=== PATIENT | female | born 2000 | race Caucasian/White ===

== ENCOUNTER 2023-04-06 16:03 | Outpatient (CLI) | payer OTHER, SELFPAY ==
--- NOTE | 2023-04-06 16:00 | CRLHL7_ITS ---
For Patients: As a result of the Cures Act, medical imaging exams and procedure reports are released immediately into your electronic medical record. You may view this report before your referring provider. If you have questions, please contact your health care provider. INDICATION: First trimester scan, establish dates. COMPARISON: None. TECHNIQUE: Real-time clay-scale imaging of the pelvis was performed. FINDINGS: Sonographic imaging demonstrates a single living intrauterine gestation. The embryo demonstrates a regular cardiac rate measuring 167 beats per minute. The embryo`s crown-rump length measurement of 2.6 cm corresponds to a gestational age of 9 weeks 2 days with a sonographic due date of 11.07.23. There is a normal-appearing yolk sac. There are no gross abnormalities noted within the embryo at this early state of development. The gestational sac has a normal appearance. There is no evidence of a perigestational hemorrhage. The amount of fluid within the sac appears appropriate for gestational age. The cervix is closed. The myometrium appears normal. The ovaries are of normal size. Corpus luteal cyst left ovary. There are no suspicious fluid collections noted in the cul-de-sac. IMPRESSION: Normal first trimester OB ultrasound exam. Gestational age calculated at 9 weeks 2 days with a sonographic due date of 11.07.23. Dictated by Anatoliy Cardenas MD @ 04/07/2023 12:34:08 PM (Electronically Signed)
== END 2023-04-06 16:04 | disposition home or self-care (01) ==
LOC: US 16:04
PROVIDERS: Visit Provider Physician Assistant
DX: Z34.91 Encounter for supervision of normal pregnancy, unspecified, first trimester (principal); Z3A.09 9 weeks gestation of pregnancy
CPT/HCPCS: 76817

== ENCOUNTER 2023-04-06 17:01 | Outpatient (CLI) | payer OTHER, SELFPAY ==
[2023-04-06 22:01] LABS: Chlamydia DNA Amplified* NOT DETECTED (No Detected); GC DNA Amplified* NOT DETECTED (No Detected)
== END 2023-04-06 17:02 | disposition home or self-care (01) ==
PROVIDERS: Visit Provider Physician Assistant
DX: Z34.91 Encounter for supervision of normal pregnancy, unspecified, first trimester (principal); Z3A.08 8 weeks gestation of pregnancy
CPT/HCPCS: 86592; 86703; 86762; 86787; 86803; 86850; 86900; 86901; 87086; 87340; 87491; 87591

== ENCOUNTER 2023-05-04 13:17 | Outpatient (CLI) | payer OTHER, SELFPAY ==
--- NOTE | 2023-05-04 13:00 | CRLHL7_ITS ---
For Patients: As a result of the Century Cures Act, medical imaging exams and procedure reports are released immediately into your electronic medical record. You may view this report before your referring provider. If you have questions, please contact your health care provider. CLINICAL HISTORY: First trimester screening. TECHNIQUE: Real time clay scale imaging of the fetus was performed using a transabdominal approach. FINDINGS: Sonographic imaging demonstrates a single living intrauterine gestation. The fetus demonstrates a regular cardiac rate measuring 150 beats per minute. The crown rump length measurement of 8.2 cm corresponds to a gestation of 14 weeks 1 day which is concordant with the earlier dating ultrasound. A nuchal translucency measurement of 1.8 mm was obtained for screening purposes. IMPRESSION: Nuchal translucency measurement obtained for first trimester screen. Dictated by Anatoliy Cardenas MD @ 05/05/2023 1:02:14 PM (Electronically Signed)
== END 2023-05-04 13:18 | disposition home or self-care (01) ==
PROVIDERS: Visit Provider Physician Assistant
DX: Z34.91 Encounter for supervision of normal pregnancy, unspecified, first trimester (principal); Z3A.14 14 weeks gestation of pregnancy
CPT/HCPCS: 36415; 76801; 76813; 84163; 84702

== ENCOUNTER 2023-06-25 11:04 | Outpatient (CLI) | payer MEDICAID, SELFPAY ==
--- NOTE | 2023-06-25 11:15 | CRLHL7_ITS ---
For Patients: As a result of the Century Cures Act, medical imaging exams and procedure reports are released immediately into your electronic medical record. You may view this report before your referring provider. If you have questions, please contact your health care provider. INDICATION: Evaluate anatomy. COMPARISON: 04/06/2023, 05/04/2023 TECHNIQUE: Real time clay scale imaging of the fetus was performed as well as color Doppler analysis of the umbilical vessels. FINDINGS: Sonographic imaging demonstrates a single living intrauterine gestation. Fetus demonstrates a regular cardiac rate of 154 beats per minute. Fetus has a vertex position. The placenta lies anteriorly without evidence of placenta previa. The edge of the placenta is located 7.2 cm from the internal cervical os. Amniotic fluid volume appears normal. Single deepest vertical pocket: 4.3 cm. The cervix is closed and measures 4.2 cm in length. The composite ultrasound gestational age is calculated at 21 weeks 3 days with an estimated sonographic due date of 11/02/2023. The estimated weight is 435 grams which lies at the 88th %. The following biometric measurements were obtained: Biparietal diameter: 5.0 cm/21 weeks 2 days 71st% Head circumference: 18.4 cm/20 weeks 6 days 44th% Abdominal circumference: 17.3 cm/22 weeks 2 days 87th% Femur length: 3.5 cm/21 weeks 0 days 52nd% The HC/AC ratio measures: 1.07 range (1.06-1.24) On anatomic survey, there is a normal appearance of the cerebral ventricles, cavum septi pellucidi, cisterna magna and cerebellum. The nose, lips, and facial profile appear normal. The cervical, thoracic and lumbar spine are well visualized and appear normal. There is a normal four-chamber heart view and the left and right ventricular outflow tracts appear normal. The diaphragm and stomach appear normal. The kidneys and bladder also appear normal. There is a normal three-vessel cord and cord insertion site. The four extremities appear normal. IMPRESSION: Normal OB ultrasound exam with concordance of clinical and sonographic dating. No intrinsic abnormalities noted on anatomic survey. Dictated by Anatoliy Cardenas MD @ 06/25/2023 12:09:45 PM (Electronically Signed)
== END 2023-06-25 11:05 | disposition home or self-care (01) ==
LOC: US 11:05
PROVIDERS: Visit Provider Physician Assistant
DX: Z34.92 Encounter for supervision of normal pregnancy, unspecified, second trimester (principal); Z3A.21 21 weeks gestation of pregnancy
CPT/HCPCS: 76805

== ENCOUNTER 2023-08-26 09:45 | Outpatient (CLI) | payer BC, SELFPAY | END 2023-08-26 09:46 | disposition home or self-care (01) | LOC: NFLDREF 09-01 18:27 | PROVIDERS: Visit Provider Obstetrics & Gynecology | DX: Z34.92 Encounter for supervision of normal pregnancy, unspecified, second trimester (principal) | CPT/HCPCS: 86592; 86850 ==

== ENCOUNTER 2023-09-23 14:29 | Outpatient (CLI) | payer OTHER, BC, SELFPAY ==
--- NOTE | 2023-09-29 12:27 | ONC.NURNOTE ---
Dx: Iron Deficiency Anemia
== END 2023-09-23 14:30 | disposition home or self-care (01) ==
LOC: NFLDREF 09-24 01:05
PROVIDERS: Visit Provider Obstetrics & Gynecology
DX: Z34.83 Encounter for supervision of other normal pregnancy, third trimester (principal)
CPT/HCPCS: 82728

== ENCOUNTER 2023-10-08 11:00 | Outpatient (REF) | payer OTHER, BC, SELFPAY | END 2023-10-08 11:01 | disposition home or self-care (01) | LOC: NFLDREF 11:00 | PROVIDERS: Visit Provider Obstetrics & Gynecology | DX: Z34.93 Encounter for supervision of normal pregnancy, unspecified, third trimester (principal); Z3A.35 35 weeks gestation of pregnancy | CPT/HCPCS: 87081; 87653 ==

== ENCOUNTER 2023-10-15 09:30 | Outpatient (RCR) | payer OTHER, BC, SELFPAY ==
[2023-10-14 11:38] VITALS: BP 127/77; PULSE 102; RESP 16; TEMP 36.5; O2SAT 96
--- NOTE | 2023-10-14 12:11 | ONC.NURNOTE ---
Patient here for infed. Pharmacy does not have the drug. Patient rescheduled for tomorrow at 930. Moved OB appointment to 1:15 to be safe. Service recovery gift card given to patient. Patient very understanding and all questions answered.
--- NOTE | 2023-10-14 13:31 | URNOTE ---
Request Received for authorization for Iron Dextran (Infed) ([id number]). Prior Authorization is not required per [facility] Rep. Pineda (Ref#[id number]), or SHAAN antonio (Ref# [id number]) date range: 09/28/2023 to 12/21/2023.
[2023-10-15 09:28] VITALS: BP 132/80; PULSE 94; RESP 16; TEMP 36; O2SAT 97
[2023-10-15] MEDS: IRON DEXTRAN COMPLEX 25 MG in 0.9 % SODIUM CHLORIDE 100 ml 100 ML 402 MG IVPB (09:45)
[2023-10-15 10:05] VITALS: BP 123/71; PULSE 86; RESP 16; TEMP 36.7; O2SAT 98
[2023-10-15 10:32] VITALS: BP 117/73; PULSE 94; RESP 16; TEMP 36.8; O2SAT 96
[2023-10-15] MEDS: IRON DEXTRAN COMPLEX 975 MG in 0.9 % SODIUM CHLORIDE 250 ml 250 ML 269.5 MG IVPB (10:57)
[2023-10-15 12:05] VITALS: BP 112/65; PULSE 85; RESP 16; TEMP 36.7; O2SAT 96
[2023-10-15 12:26] VITALS: BP 128/71; PULSE 79; RESP 16; TEMP 36.6; O2SAT 97
== END 2024-04-11 23:59 | disposition home or self-care (01) ==
LOC: CCIC 09:30
PROVIDERS: PCP Obstetrics & Gynecology; Referring Provider Obstetrics & Gynecology; Visit Provider Clinical Nurse Specialist
DX: D50.9 Iron deficiency anemia, unspecified (principal)
CPT/HCPCS: 96365; 96376; J1750; J7050

== ENCOUNTER 2023-11-09 16:31 | Inpatient (IN) | payer OTHER, BC, SELFPAY ==
[2023-11-09 16:48] VITALS: BP 131/75; PULSE 102; PULSE 109; RESP 16; TEMP 36.9; O2SAT 95
[2023-11-09 16:55] VITALS: BMI 28.9
--- NOTE | 2023-11-09 17:44 | P.LDBA_ITS ---
Subjective History of Present Illness Narrative: Patient is being admitted to Labor and Delivery for elective IOL. She is a 22 year old at 40 and 2/7 weeks gestation. Her full history and physical was dictated by Malou Sauer CNM on 10/15/23. Please see this for details. Specific Issues/Plans 1. Asthma,mild 2. History of depression. PHQ-9 11, MARCELINO 7 at 1st OB, denies medication at this time. Has been successfully treated with sertraline in the past 05/04/2023: PHQ 9: 16, MARCELINO : 12. Started sertraline 50 mg PHQ-9 and marcelino 7 next visit, 05/28: PHQ-9 and marcelino 7 scores were both 3 3. History of scoliosis, status post surgery with placement of rods, she believes thoracic (phone images, rods appear to extend to upper lumbar spine JESUS MANUEL signed for records 05/04/23: T3-L1 posterior spinal fusion. T3-L1 posterior segmental instrumentation. Osteotomies x4, T6 -T10 Anesthesiology consult: completed 09/14/23 - might take longer to place epidural/spinal but no contraindication to having it placed. 4. E cigarette use. Tapering and planning on quitting 05/04/23: Having difficulty quitting, she may try nicotine patch 07/26/23: completely cessation achieved without any replacement needed 5. RH negative Rhogam: 08/26/2023 6. Anemia Failed PO iron Hgb 9.5 on 09/23/23 IV iron: 10/15/23 Covid: Declined Flu: Given, 07/26/23 Tdap: Given, 08/26/23 Rhogam: Given, 08/26/23 Rhophylac [facility] unit #[id number] Baby girl: Madeline or Charmaine? OB - Problem Based A/P Additional Plan (1) : Status: Acute Plan: Term . Unfavorable cervix. Category 1 tracing. GBS positive. Plan Using aseptic technique, Cook catheter was inserted through the cervix into the lower uterine segment. Intrauterine and intravaginal balloons were inflated with a total of 60 mL of saline. Low-dose Pitocin will be started at 9:30 p.m. katie. Cook catheter we will be removed after 12 hours of use, or sooner should rupture of membranes occur. Continues monitoring while Pitocin in use. Begin ampicillin for GBS prophylaxis. Delivery/Labor/Induction Plan Induction method: Intracervical balloon catheter OB Exam Physical Exam Vital signs: Temp Pulse Resp BP Pulse Ox 98.4 F 102 H 16 131/75 95 11/09/23 16:48 11/09/23 16:48 11/09/23 16:48 11/09/23 16:48 11/09/23 16:48 Narrative: Physical exam: General: No acute distress Psych: Alert and oriented x3, full affect HEENT: Normocephalic, atraumatic Heart: Regular rate and rhythm, no murmur rub or gallop Lungs: Clear to auscultation bilaterally Abdomen: Soft, nontender, gravid, cephalic lie, EFW 7.5 lb by Arsh's Lower extremities: No edema or erythema Pelvic exam: Cervix 1 cm, 80%,-2, mid position, soft. Vertex. tracing: Baseline 130, accelerations present, no decelerations, moderate variability.
[2023-11-09] MEDS: LACTATED RINGERS 500 ML 500 ML IV (18:05)
[2023-11-09 18:11] LABS: Basophils Percent Auto 0.1 % (0.0-3.0); Eosinophils Percent Auto 0.2 % (0.0-7.0); Hematocrit 34.2 % (33.0-51.0); Immature Granulocytes Pct Auto 1.1 %; Lymphocytes Percent Auto 11.6 % (20-44); Mean Corpuscular HGB Conc 32 gm/dL (32-36); Mean Corpuscular Hemoglobin 28 pg (26-34); Mean Corpuscular Volume 88 fL (80-100); Monocytes Percent Auto 4.7 % (0.0-11.0); Neutrophils Percent Auto 82.3 % (42.0-72.0); Platelet Count* 217 K/uL (140-440); RDW Coefficient of Variation % 17.6 % (11.5-15.5); Red Blood Count 3.89 m/uL (4.00-5.20); White Blood Count* 12.44 K/uL (4.50-11.00)
[2023-11-09 18:16] LABS: Slide Review Reflex No
[2023-11-09] MEDS: AMPICILLIN 2 GM in 0.9 % SODIUM CHLORIDE Mini-bag 100 ML IVPB (18:54)
[2023-11-09] MEDS: LACTATED RINGERS 1000 ML 1,000 ML 125 ML IV (21:37)
[2023-11-09] MEDS: OXYTOCIN 30 unit/500 ML in NS 30 UNIT/500 ML BAG IVPB (21:38)
[2023-11-09 21:39] VITALS: BP 116/57; PULSE 75
[2023-11-09 21:43] VITALS: RESP 16; TEMP 36.6
[2023-11-09] MEDS: AMPICILLIN 1 GM in 0.9 % SODIUM CHLORIDE Mini-bag 100 ML IVPB (22:49)
[2023-11-09 22:52] VITALS: BP 111/57; PULSE 84
[2023-11-09 23:46] VITALS: BP 110/59; PULSE 90
[2023-11-10] VITALS (117 sets, daily range): BP systolic 104–151; BP diastolic 53–90; PULSE 69–130; RESP 16–20; TEMP 36.4–37.4; O2SAT 92–99
[2023-11-10] MEDS: hydrOXYzine pamoate 25 MG CAPSULE 100 MG PO (00:34)
[2023-11-10] MEDS: MORPHINE 10 MG/ML inj IM (00:34)
[2023-11-10] MEDS: LACTATED RINGERS 1000 ML 1,000 ML 125 ML IV ×3 (01:47→14:46)
[2023-11-10] MEDS: AMPICILLIN 1 GM in 0.9 % SODIUM CHLORIDE Mini-bag 100 ML IVPB ×5 (02:51→19:05)
--- NOTE | 2023-11-10 08:43 | PM.ANBPRC ---
[facility] Medical History Scoliosis ?M41.9 - Scoliosis, unspecified (ICD-10) Depression ?F32.A - Depression, unspecified (ICD-10) Surgical History History of back surgery ?Z98.890 - Other specified postprocedural states (ICD-10) Social History Narrative: Occupation: Customer service. Marital status: Significant other. Yarsanism/cultural needs: no. Chemical or radiation exposure: no. Pre- tobacco use: E cigarette use. Pre- alcohol use: 2 per week. Current tobacco use: Tapering E cigarette use. Current alcohol use: no. Recreational drug use: no. Dietary restrictions: no. Blood transfusion acceptable in an emergency: yes . FAMILY AND GENETIC HISTORY: Denies history recurrent loss, defects, inheritable disease PSYCHOSOCIAL HISTORY: History of depression or currently depression: yes, history. Current or past physical, emotional, or sexual mistreatment: no. Problems that will make it hard to make it to appointments: no. What is your current living situation?: I presently have a place to live Problems where you live: no known problems In the past 12 months, utilities in danger of being shut off: no In past 12 months, lack of transportation kept you from medical appts, meetings, work, or getting things needed for daily living: no In the past 12 mos, have been you worried that your food would run out before you had money to buy more?: never true In the past 12 mos, the food you bought just didn't last and you didn't have money to buy more?: never true Smoking Status: Former smoker How often does anyone, including family, friends and others, physically hurt you: never How often does anyone, including family, friends and others, insult or talk down to you: never How often does anyone, including family, friends and others, threaten you with harm: never How often does anyone, including family, friends and others, scream or curse at you: never Little interest or pleasure in doing things: several days Feeling down, depressed, or hopeless: not at all Meds Home Medications and Allergies Home Medications Medication Instructions Recorded Confirmed Type docosahexaenoic acid 200 mg 200 mg PO 05/04/23 11/05/23 History capsule ( DHA) Allergies Allergy/AdvReac Type Severity Reaction Status Date / Time No Known Drug Allergies Allergy Verified 11/05/23 13:58 Results Labs Labs: Laboratory Results - last 24 hr 11/09/23 18:00 WBC 12.44 H RBC 3.89 L Hgb 11.0 L Hct 34.2 MCV 88 MCH 28 MCHC 32 RDW Coeff of Mikey 17.6 H Plt Count 217 Neut % (Auto) 82.3 H Lymph % (Auto) 11.6 L Bartholomew % (Auto) 4.7 Eos % (Auto) 0.2 Baso % (Auto) 0.1 Neut # (Auto) 10.20 H Lymph # (Auto) 1.40 Bartholomew # (Auto) 0.60 Eos # (Auto) 0.00 Baso # (Auto) 0.00 Abs Immat Gran (auto) 0.10 Imm/Tot Granulo (auto) 1.1 Blood Type A Negative Antibody Screen POSITIVE Vital Signs Vital Signs: Last Vital Signs Temp 98.3 F 11/10/23 08:00 Pulse 116 H 11/10/23 08:35 Resp 20 11/10/23 08:00 BP 130/87 11/10/23 08:35 Pulse Ox 98 11/10/23 08:34 Weight: 86.239 kg Height: 172.72 cm Anesthesia Procedures Epidural Insertion Patient Location: OB Start Time: 08:00 Stop Time: 09:00 Start Date: 11/10/23 Stop Date: 11/10/23 Reason for Block: primary anesthetic Patient Position: sitting Performed By: Sudhakar Verde Preanesthetic Checklist: IV checked, risks and benefits discussed, surgical consent, monitors and equipment checked, pre-op evaluation, timeout performed and anesthesia consent Prep: chlorhexidine gluconate Monitoring: blood pressure monitoring, groundwater monitoring technician, continuous pulse oximetry and heart rate Approach: midline Vertebral Space: lumbar (1-5) Needle Type: Tuohy needle Injection Technique: continuous catheter Needle gauge: 17 Needle Length (cm): 10 cm Needle Insertion Depth (cm): 6 Catheter Gauge: 19 Catheter Type: multi-orifice Catheter at skin depth (cm): 12 Test Dose Result: negative and lidocaine 1.5% with epinephrine 1 to 200,000 Events: other
--- NOTE | 2023-11-10 08:52 | P.OBPN_ITS ---
Subjective Time Seen by Provider: 08:30 Date Seen: 11/10/23 Narrative: Ms. Morin is a 22yo at 40w2d ongoing elective IOL. course is complicated by asthma, history of depression, history of scoliosis s/p T3-L1 posterior fusion and tobacco use disorder (quit E-cigarettes in July). Induction was started with cook catheter and IV pitocin overnight. Cook was removed at 0600, last cervical exam at 0750 was 4/80/-2. Patient notes her contractions are 7/10 in severity. Planning prophylactic epidural placement now given her history of scolisos and posterior fusion, plan to dose per patient preference/anesthesia. She denies any vaginal bleeding or leaking of fluids. Objective Exam: General: Alert and oriented, postures and breathes through contractions Psych: Appropriate mood and affect Abdomen: Gravid. FHR: Category 1. Baseline 150bpm, moderate variability, accelerations present, decelerations absent. Cerivx: 4/80/-1 by last RN exam. Vital Signs: Last Vital Signs Temp 98.3 F 11/10/23 08:00 Pulse 116 H 11/10/23 08:35 Resp 20 11/10/23 08:00 BP 130/87 11/10/23 08:35 Pulse Ox 98 11/10/23 08:34 Plan Plan: Ms. Morin is a 22yo at 40w1d GA admitted for elective IOL. course is complicated by asthma, history of depression, history of scoliosis s/p T3-L1 posterior fusion and tobacco use disorder (quit E-cigarettes in July). - Induction started with cook catheter (removed at 12 hours) and pitocin, ongo ing pitocin titration at present. - Plan epidural placement prophylactically given comorbidities, dosing per anesthesia/patient preference - Anticipate next exam in 2 hours with likely AROM. - BT A negative, antibody screen positive (likely passive anti-D from Rhogam, identification pending) - GBS positive, ampicillin ongoing - Anticipate next exam in 2 hours, sooner as clinically indicated
[2023-11-10] MEDS: fentaNYL 100 MCG/2 ML inj IVP ×2 (09:22→09:52)
[2023-11-10] MEDS: LIDOCAINE 2% (PF) 5 ML VIAL EPIDURAL ×2 (10:19→17:30)
[2023-11-10] MEDS: ROPIVACAINE 0.2% 100 ml 100 ML 12 MG EPIDURAL ×2 (10:19→16:41)
[2023-11-10] MEDS: fentaNYL 250 MCG/5 ML inj 100 MCG EPIDURAL ×2 (10:30→17:42)
[2023-11-10] MEDS: CALCIUM CARBONATE 500 MG CHEW PO (14:43)
[2023-11-10] MEDS: ONDANSETRON 2 MG/ML inj 4 MG IV (16:50)
--- NOTE | 2023-11-10 18:09 | PM.OBPNL ---
Subjective Time Seen by Provider: 15:40 Date Seen: 11/10/23 Narrative: Patient is ongoing elective IOL at 40w3d GA. She is resting comfortably, s/p epidural placement and dosing. She is currently on 8 mu/min of pitocin. Cervix is now 6/90/-1. EFW 3550g by Arsh'kathy. FHR category 1, baseline 140bpm with moderate variability, accelerations present with no decelerations. Anticipate next exam in 2-4 hours, sooner as clinically indicated. Objective Vital Signs: Last Vital Signs Temp 98.6 F 11/10/23 17:25 Pulse 100 11/10/23 17:48 Resp 20 11/10/23 08:00 BP 122/65 11/10/23 17:48 Pulse Ox 96 11/10/23 13:29
[2023-11-10] MEDS: LACTATED RINGERS 1000 ML 1,000 ML 925 ML IV (19:08)
[2023-11-10] MEDS: LIDOCAINE 1 % PF 30 ML INJECTION (22:01)
--- NOTE | 2023-11-10 22:52 | W.PM.VAGDEL1 ---
Procedure Delivery date: 11/10/23 Procedure Done: Global Procedure Details: Normal spontaneous vaginal delivery Repair of bilateral vaginal and labial lacerations Events: Gestational Hypertension, Labor Induction and Other (Tobacco use disorder (E cigarettes), asthma, maternal mood disorder, anemia and scoliosis) Intrapartal Events: Labor Induction Delivery monitor: external FHT Route of delivery: Laceration description: Labial (Bilateral lacerations from posterior vaginal introitus extending up entire labia ) Delivery repair: Vicryl Estimated blood loss (mL): 933 Anesthesia type: Local Disposition: floor Complications: None Narrative: Ms. Morin is a 22yo at 40w3d GA by first trimester US. She was admitted to the hospital for elective IOL.? heart tones on admission were category 1. Her was otherwise complicated by tobacco use disorder (E cigarettes, quit in July), asthma, maternal mood disorder, anemia and scoliosis. She developed gestational HTN intrapartum, preeclampsia labs pending at time of documentation. Her labor was induced with Cook catheter and pitocin, and epidural was utilized for pain management. Status of bag of shelley: SROM occurred at 0943 with return of clear fluid. heart tones during active labor were category 1 and 2. She entered labor at 0920 and progressed to complete by 1936. Pushing was initiated at 1932. heart tones through 2nd stage of labor were category 1 and 2 -with periods of elevated heart rate baseline, with moderate to minimal variability. Excellent descent was noted with maternal pushing efforts. She had a at 2147 of a live-born baby girl. Baby delivered OA, restituted GAVIN and the anterior and posterior shoulders were delivered without difficulty. No nuchal cord was noted. Active management of the 3rd stage was initiated with Pitocin in gentle traction on the umbilical cord, and the placenta delivered spontaneous and intact at 2158. There was passage of a sizable clot following expulsion of the placenta, with ongoing bleeding from labial lacerations noted prior to delivery of the placenta where pressure was applied. Perineum and vagina were inspected, and bilateral lacerations were noted from the posterior vaginal introitus extending up a majority of the labia bilaterally. Significant labial edema was noted. Active bleeding was noted at the vaginal base of each laceration, where figure of eight suture was first applied with 3-0 vicryl on both sides. There was additional active bleeding noted at the mid-labia on the left, similarly addressed with a figure of eight suture with 3-0 vicryl. Hemostasis was noted to be much improved. The bilateral labial lacerations were subsequently repaired in a running subcuticular fashion with 3-0 vicryl, knots secured posteriorly just inside the vaginal introitus. An additional figure of eight suture was applied again where the left labial incision entered the vagina for hemostasis. Excellent hemostasis was noted. QBL 933mL secondary to tissue trauma. Excellent uterine tone was noted throughout repair. All counts were correct. Mother and infant in stable condition following the . details: - Baby girl, Madeline - APGARs were 8 and 9 at 1 and 5 minutes respectively - Weight pending - Cord blood sent for infant ABO - No cord gas sent [place] Infant Gender: Female presentation: vertex Placental Delivery Description: Spontaneous
[2023-11-10 23:06] LABS: Hematocrit 30.5 % (33.0-51.0); Hemoglobin* 9.9 gm/dL (12.0-16.0); Mean Corpuscular HGB Conc 33 gm/dL (32-36); Mean Corpuscular Hemoglobin 29 pg (26-34); Mean Corpuscular Volume 88 fL (80-100); Platelet Count* 202 K/uL (140-440); Red Blood Count 3.47 m/uL (4.00-5.20)
[2023-11-10 23:09] LABS: Slide Review Reflex Yes; White Blood Count* 27.47 K/uL (4.50-11.00)
[2023-11-10 23:21] LABS: Alanine Aminotransferase* 11 U/L (4-35); Aspartate Amino Transferase* 26 U/L (12-35); Creatinine* 0.5 mg/dL (0.5-1.5); Est. Creatinine Clearance* 179.54; Estimated Glomerular Filt Rate 137 ml/min
[2023-11-10 23:30] LABS: Slide Review Acceptable Review (Acceptable)
[2023-11-11] VITALS (9 sets, daily range): BP systolic 96–110; BP diastolic 56–69; PULSE 83–137; RESP 12–18; TEMP 36.4–36.8; O2SAT 96–97
[2023-11-11] MEDS: IBUPROFEN 600 MG TABLET PO ×2 (00:38→17:41)
[2023-11-11 07:10] LABS: Hemoglobin* 7.7 gm/dL (12.0-16.0)
--- NOTE | 2023-11-11 07:59 | PM.OBPNVD1 ---
OB - PN:Subj Subjective Date Seen: 11/11/23 Narrative: Haritha is a 22 y.o. G 1 P 1 who was admitted to [facility] for elective induction of labor. ?She had a NVD that was complicated by significant laceration and QBL of 933. The patient feels well. She did have some dizziness and lightheadedness overnight.?The pain is well controlled with current medications. ?She has no new complaints. ?She is breast feeding and reports things are going well. the patient has done well.? Vitals have been stable.? She has remained afebrile.? Has a good appetite, is tolerating a general diet. ?She is voiding without difficulty.? She is passing gas and has not had a bowel movement.? She is ambulating and denies any dizziness.? Has small amount of rubra lochia. Problems: Anemia due to blood loss, hgb 7.7 OB - PN: Obj Exam Physical Exam: Vital signs: Temp Pulse Resp BP Pulse Ox O2 Del Method 97.7 F 86 16 104/63 96 Room Air 11/11/23 04:43 11/11/23 04:43 11/11/23 04:43 11/11/23 04:43 11/11/23 04:43 11/11/23 04:43 Narrative: GENERAL APPEARANCE:? normal affect, alert, no distress; pale MOOD:? appropriate CHEST:? clear to auscultation HEART:? regular rate and rhythm ABDOMEN:? soft, non-tender the uterine fundus is At Umbilicus, Midline and is appropriate for the stage of recovery. PERINEUM:? mild edema of the perineum, there is a Perineal Laceration with labial, that is healing well. EXTREMITIES:? normal and no edema OB - PN: Obj Data Labs Labs: Laboratory Results - last 24 hr 11/09/23 11/10/23 11/11/23 18:00 23:00 06:44 WBC 27.47 H* RBC 3.47 L Hgb 9.9 L 7.7 L* Hct 30.5 L MCV 88 MCH 29 MCHC 33 Plt Count 202 Diff Slide Review Acceptable Review Creatinine 0.5 Estimated Creat Clear 179.54 Estimated GFR 137 AST 26 ALT 11 Antibody Identification Anti-D OB - PN: A/P Delivery Assessment and Plan (1) care and examination immediately after delivery: Status: Acute (2) Lactating mother: Status: Acute (3) Anemia due to acute blood loss: Status: Acute Plan day: 1 Plan: routine care Comments: plan: Routine care Anemia. Hgb 7.7. Due to symptoms and low hgb, recommended blood transfusion. She agrees. Risks/benefits reviewed. , may see if needed GHTN diagnosed by elevated BP greater than 4 hours apart Labs WNL Anticipate discharge tomorrow.
[2023-11-11] MEDS: DOCUSATE SODIUM 100 MG CAPSULE PO (08:54)
[2023-11-11] MEDS: ACETAMINOPHEN 500 MG TABLET 1000 MG PO (08:54)
[2023-11-11] MEDS: SODIUM CHLORIDE 0.9 % (FLUSH) 10 ML SYRINGE IVF (14:33)
[2023-11-11 17:58] LABS: Rapid Plasma Reagin (RPR) Non Reactive (Non Reactive)
[2023-11-12 03:55] VITALS: BP 102/55; PULSE 82; RESP 14; TEMP 36.6; O2SAT 97
[2023-11-12 06:59] LABS: Hemoglobin* 7.9 gm/dL (12.0-16.0)
--- NOTE | 2023-11-12 08:08 | PM.OBDSVD1 ---
DS: Providers Provider Date Seen: 11/12/23 Date of admission: 11/09/23 16:31 Primary care physician: Not a Local Provider Admitting Clinician: Linda Menard MD Attending Physician on discharge: Celina Coelho MD Date of Discharge: 11/12/23 DS: Diagnosis Discharge Diagnosis (1) care following vaginal delivery: Status: Acute (2) Anemia: Status: Acute (3) Lactating mother: Status: Acute Exam Narrative: Exam Narrative: MOOD:? appropriate? CHEST:? clear to auscultation and percussion? HEART:? regular rate and rhythm? ABDOMEN:? soft, non-tender the uterine fundus is U/2 and is appropriate for the stage of recovery.? PERINEUM:? mild edema of the perineum, there is a labial laceration that is healing well.? EXTREMITIES:? normal and no edema? Patient has no complaints? No active bleeding?? Doing well? She is requesting discharge home.? Const: Vital Signs, click to edit/add: Vital Signs - 24 hr 11/11/23 08:55 11/11/23 11:04 11/11/23 14:28 Temperature 97.6 F 98.2 F 97.7 F Pulse Rate 96 Pulse Rate [Pulse Oximeter] 86 86 Respiratory Rate 12 12 18 Blood Pressure 103/69 Blood Pressure [Le ft Arm] 103/56 L 100/64 Pulse Oximetry 96 Oxygen Delivery Me thod 11/11/23 14:47 11/11/23 15:32 11/11/23 15:32 Temperature 97.6 F 98.0 F 98.0 F Pulse Rate 84 83 Pulse Rate [Pulse Oximeter] 83 Respiratory Rate 12 12 12 Blood Pressure 110/68 100/61 Blood Pressure [Le ft Arm] 108/61 Pulse Oximetry 97 97 97 Oxygen Delivery Me thod Room Air 11/11/23 17:37 11/11/23 19:16 11/12/23 03:55 Temperature 97.6 F 97.7 F 97.8 F Pulse Rate Pulse Rate [Pulse Oximeter] 83 83 82 Respiratory Rate 12 14 14 Blood Pressure Blood Pressure [Le ft Arm] 106/63 109/63 102/55 L Pulse Oximetry 97 97 Oxygen Delivery Me thod Room Air Room Air OB - DS: Summary Hospital Course Hospital Course: The patient is a 22 year old G 1 P 1 at 40.3 weeks gestation that was admitted to the Center on 11/09/23 for []. She had an vaginal delivery complicated by an extensive labial laceration leading to QBL 933. She is anemic and did get 1 unit PRBCs. She denies symptoms at this time. Offered IV iron infusions but she declines at this time and would prefer to do PO iron only. She delivered a viable female . She is breast feeding and feels that it is going good. the patient has done well. The pain is well controlled with current medications.? She has no new complaints.? Urinary output is adequate and she is voiding without difficulty.? Has a good appetite, is tolerating a general diet, is passing flatus, and has not had a bowel movement.? Has small amount of rubra lochia.? She is ambulating well.?She is unsure what she is planning for control. She has used both the Nexplanon and oral contraceptive pills in the past. Peripartum Data delivery method: Vaginal Laceration description: Labial Episiotomy description: None complications: transfusion (1 unit RBC) [place] Infant Gender: Female Infant Discharge Plan: Home Status at Discharge Functional status at discharge: independent ambulation Overall status at discharge: patient is progressing back to baseline Time Spent with Patient Time attestation: Total time spent providing and/or coordinating discharge services: Discharge Plan Discharge Disposition: Home, Self-Care Date of Admission: 11/09/23 16:31 Attending Provider on Discharge: Parisa Corey Primary Care Provider: Provider,Not a Local Condition: Stable Anticipated Discharge Date/Time: 11/12/23 10:00 Discharge Medications: New docusate sodium 100 mg Capsule 100 mg PO DAILY Qty: 90 0RF Rx Instructions: Take 1-2 tablets daily as needed for constipation. ibuprofen 600 mg Tablet 600 mg PO Q6H PRNQty: 30 0RF ferrous sulfate 325 mg (65 mg iron) tablet 325 mg PO Q OTHER DAY Qty: 90 0RF Continued DHA 200 mg capsule 200 mg PO DAILY PRN Discharge Orders: Discharge Order (Routine); Ordered 11/12/23 Ordered By: Parisa Corey Patient Education: OB Vaginal/Breast Feeding Additional Instructions: Discharge instructions were reviewed with the patient including signs and symptoms of infection and home going medications.? Lifting Restrictions: 20 pounds for 6? weeks? ?? Do not drive while taking narcotic pain meds.? Off Work or School for 6 weeks.? ?? Symptoms to report to doctor:? -Bleeding that saturates more than one pad per hour? -Passing clots larger than the size of a golf ball? -Pain not relieved by prescribed medication? -Fever above 100.4 degrees Fahrenheit? -A foul vaginal odor? -Difficulty in emotions, mood and functions? -Thoughts of hurting yourself and/or ? -Painful, reddened area in your breast? -Any drainage, redness or tenderness in your IV/epidural site? -Severe headache that doesn't improve after taking medications? -Changes in vision, including temporary loss of vision, blurred vision, and/or light sensitivity? -Upper abdominal pain (usually under ribs on the right side)? -Decrease in urination or painful, frequent urinating? -Chest pain? -Shortness of breath? -Tenderness or pain with redness and/swelling in the calf(s) of your leg? ?? Follow Up in clinic in 2 and 6 weeks.? ?? consultation services are available to all mothers and babies for the first year after delivery.? To make an appointment, please call [phone].? Activity Level: Activity as Tolerated Discharge Diet: Regular Follow Up Appointments: Provider,Not a Local [Primary Care Provider] - [facility] [Provider Group] Forms: [employer] Info Instructions
[2023-11-12] MEDS: IBUPROFEN 600 MG TABLET PO (09:46)
[2023-11-12] MEDS: DOCUSATE SODIUM 100 MG CAPSULE PO (09:46)
[2023-11-12 09:49] VITALS: BP 110/66; PULSE 81; RESP 18; TEMP 36.3; O2SAT 99
== END 2023-11-12 12:55 | disposition home or self-care (01) | DRG 806 ==
PROVIDERS: Advanced Practice Midwife; Admitting Provider Obstetrics & Gynecology; Visit Provider Obstetrics & Gynecology
DX: O99.824 Streptococcus B carrier state complicating childbirth (principal); D62 Acute posthemorrhagic anemia; Z37.0 Single live birth; O70.0 First degree perineal laceration during delivery; O13.5 Gestational [pregnancy-induced] hypertension without significant proteinuria, complicating the puerperium; O99.03 Anemia complicating the puerperium; O99.02 Anemia complicating childbirth; D64.9 Anemia, unspecified; O26.893 Other specified pregnancy related conditions, third trimester; M41.9 Scoliosis, unspecified; O99.344 Other mental disorders complicating childbirth; F32.A Depression, unspecified; Z67.11 Type A blood, Rh negative; O99.334 Smoking (tobacco) complicating childbirth; F17.291 Nicotine dependence, other tobacco product, in remission; Z3A.40 40 weeks gestation of pregnancy
CPT/HCPCS: 01967; 36415; 36430; 59200; 82565; 84450; 84460; 85018; 85025; 85027; 85461; 86592; 86850; 86870; 86880; 86900; 86901; 86922; A9270; C1726; J0290; J2001; J2270; J2371; J2405; J2791; J2795; J3010; J7120; P9016